=== PATIENT | female | born 1945 | race Hispanic/Latino ===

== ENCOUNTER 2018-10-23 09:06 | Day surgery (SDC) | payer OTHER ==
[2018-10-19 12:33] VITALS: BP 120/48
[2018-10-19 13:11] LABS: BASOPHILS % (AUTO) 0.2 % (0.0-5.0); LYMPHOCYTES % (AUTO) 28.3 % (21.0-51.0); MEAN CORPUSCULAR HGB CONC 33.8 g/dL (32.0-36.0); MEAN CORPUSCULAR VOLUME 94.8 fL (79-99); MONOCYTES % (AUTO) 6.3 % (3.0-13.0); NEUTROPHILS % (AUTO) 64.2 % (40.0-77.0); NUCLEATED RED BLOOD CELLS 0.1 % (0.0-0.19); PLATELET COUNT (AUTO) 172 K/uL (130-400); RED BLOOD CELL COUNT(AUTO) 4.01 MIL/uL (4.00-5.50); RED CELL DISTRIBUTION WIDTH 13.1 % (11.0-15.5); WHITE BLOOD COUNT (AUTO) 7.7 K/uL (4.8-10.8)
[2018-10-19 13:12] LABS: APPEARANCE,URINE Turbid (CLEAR); BILIRUBIN,URINE Negative (NEGATIVE); COLOR,URINE Yellow (YELLOW); GLUCOSE, URINE (UA) Negative (NEGATIVE); KETONES,URINE Negative (NEGATIVE); LEUKOCYTE ESTERASE ,URINE Moderate (NEGATIVE); NITRATE,URINE Positive (NEGATIVE); OCCULT BLOOD,URINE Negative (NEGATIVE); PROTEIN,URINE Negative (NEGATIVE); UROBILINOGEN,URINE 0.2 mg/dL (0.2-1.0)
[2018-10-19 13:24] LABS: INR 1.29 (0.85-1.15); PARTIAL THROMBOPLASTIN TIME 42.4 SEC (26.3-35.5); PROTHROMBIN TIME 13.5 SEC (9.6-11.6)
[2018-10-19 13:30] LABS: BACTERIA,URINE Moderate /HPF (None Seen); RBC,URINE 0-1 /HPF (0-1); SQUAMOUS EPITHELIAL CELL,UR Rare /HPF (0-2); WBC,URINE 26-50 /HPF (0-1)
[2018-10-19 13:32] LABS: CREATININE 0.8 mg/dL (0.5-1.5); POTASSIUM 3.8 mmol/L (3.5-5.1)
--- NOTE | 2018-10-22 10:50 | NUR ---
ABNORMAL LABS NOTIFIED UMAIR FAUSTIN OF PT 13.5, INR 1.29, PTT 42.4. UA- NITRATES POSITIVE, ULEUKEST MODERATE, UWBC 26-50. ORDERS TO DO URINE CULTURE. CALLED LAB, PER LAB, URINE SAMPLE FROM UA ONLY GOOD FOR 24 HOURS. WILL COLLECT URINE SAMPLE DAY OF PROCEDURE.
[~2018-10-23] VITALS: Ht 156.2 cm; Wt 80.7 kg
[2018-10-23] VITALS (11 sets, daily range): BP systolic 118–161; BP diastolic 34–60
[~2018-10-23 09:06] MED LIST: CA C-5 PO; CALC-866 PO; DIAZ5TAB4 PO; DONE10TA43 PO; ESCI20TA36 PO; FAMO20TA8 PO; HYDR-4068 PO; LOSA1TAB42 PO; MECL12.585 PO; MEMA10TA20 PO; METO25TA6 PO; NIFE30TA98 PO; OXYBUTYNIN; OXYBUTYNIN PO; PRED1TAB PO; RIVA20TA PO; SODIUM CHLORIDE 0.9% 500ML 500 ML IV SCH
[2018-10-23] MEDS ORDERED: MULT-1258 PO (09:48)
[2018-10-23] MEDS ORDERED: SODIUM CHLORIDE 0.9% 1000ML 1,000 ML IV ONE (09:55)
--- NOTE | 2018-10-23 10:23 | NUR ---
PROCEDURE PT HERE FOR PROCEDURE. DENIES ANY DISCOMFORT. DAUGHTER AT BEDSIDE
--- NOTE | 2018-10-23 12:28 | NUR ---
PROCEDURE PT TAKEN TO PROCEDURE VIA BED BY HUMAN PROJECTILE PERSONNEL ROOPA ARMAS
[2018-10-23] MEDS ORDERED: SODIUM BICARB 50MEQ 50ML VIAL ONE (12:31)
[2018-10-23] MEDS ORDERED: HEPARIN SODIUM 1000UNIT/ML 10ML VIAL ONE (12:31)
[2018-10-23] MEDS ORDERED: IOHEXOL 350 MG/ML 100ML INFUS..BTL IV ONE (12:32)
[2018-10-23] MEDS ORDERED: LIDOCAINE HCL 2% 20ML ONE (12:32)
[2018-10-23] MEDS ORDERED: NITROGLYCERIN 5 MG/ML 10 ML VIAL IV ONE (12:32)
[2018-10-23] MEDS ORDERED: MIDAZOLAM HCL 1 MG/ML 2ML VIAL ONE ×2 (13:03→13:32)
[2018-10-23] MEDS ORDERED: MEPERIDINE-PF 25 MG/ML SYG ONE ×2 (13:03→13:31)
[2018-10-23] MEDS ORDERED: CEFAZOLIN SODIUM 1 GM VIAL ONE (13:31)
[2018-10-23] MEDS ORDERED: LIDOCAINE HCL 1% MDV 50ML VIAL ONE (13:32)
[2018-10-23] MEDS ORDERED: BUPIVACAINE/PF 0.25% 30ML VIAL IJ ONE (13:32)
[2018-10-23] MEDS ORDERED: SODIUM CHLORIDE 0.9% 1000ML 1,000 ML IV SCH (14:05)
[2018-10-23] MEDS ORDERED: ACETAMINOPHEN-CODEINE 300/30MG TAB PO PRN ×2 (14:15)
[2018-10-23] MEDS ORDERED: ACETAMINOPHEN 325 MG TAB PO ONE (16:15)
== END 2018-10-23 18:25 | disposition home or self-care (01) ==
LOC: DAH 09:06
PROVIDERS: ATTEND Internal Medicine Cardiovascular Disease
DX: I25.10 Atherosclerotic heart disease of native coronary artery without angina pectoris (principal); Z68.34 Body mass index [BMI] 34.0-34.9, adult; Z79.899 Other long term (current) drug therapy; Z79.01 Long term (current) use of anticoagulants; I48.0 Paroxysmal atrial fibrillation; I49.5 Sick sinus syndrome; Z86.73 Personal history of transient ischemic attack (TIA), and cerebral infarction without residual deficits; M54.12 Radiculopathy, cervical region; Z98.890 Other specified postprocedural states; Z90.710 Acquired absence of both cervix and uterus
CPT/HCPCS: 36415; 71045; 80048; 81001; 85025; 85610; 85730; 87077; 87088; 87186; 93005; 93458; C1760; C1894; J0690; J1644; J2175; J2250; J3490 ×5; J7030; Q9965 ×2; Q9967; 99156; 99157

== ENCOUNTER 2018-11-20 10:00 | Observation (INO) | payer OTHER ==
[2018-11-16 13:40] VITALS: BP 110/43
[2018-11-16 14:23] LABS: BASOPHILS % (AUTO) 0.7 % (0.0-5.0); EOSINOPHILS % (AUTO) 0.9 % (0.0-8.0); HEMATOCRIT 37.9 % (36-48); LYMPHOCYTES % (AUTO) 24.7 % (21.0-51.0); MEAN CORPUSCULAR HEMOGLOBIN 31.9 pg (27.0-33.0); MEAN CORPUSCULAR HGB CONC 33.7 g/dL (32.0-36.0); MEAN CORPUSCULAR VOLUME 94.7 fL (79-99); MONOCYTES % (AUTO) 6.2 % (3.0-13.0); NEUTROPHILS % (AUTO) 67.5 % (40.0-77.0); PLATELET COUNT (AUTO) 186 K/uL (130-400); RED CELL DISTRIBUTION WIDTH 13.1 % (11.0-15.5); WHITE BLOOD COUNT (AUTO) 7.4 K/uL (4.8-10.8)
[2018-11-16 14:36] LABS: CREATININE 0.9 mg/dL (0.5-1.5); POTASSIUM 4.1 mmol/L (3.5-5.1)
[2018-11-16 14:37] LABS: INR 1.05 (0.85-1.15); PARTIAL THROMBOPLASTIN TIME 32.9 SEC (26.3-35.5)
--- NOTE | 2018-11-16 14:48 | NUR ---
PATIENT TAKES MEMANTINE AND DONEPEZIL, SHE IS ABLE TO RECALL THE PROCEDURE AND REASON FOR THIS PROCEDURE, SHE ALERT AND ORIENTED X3
[~2018-11-20] VITALS: Ht 154.9 cm; Wt 81.4 kg
[2018-11-20] VITALS (9 sets, daily range): BP systolic 104–133; BP diastolic 39–60
[~2018-11-20 10:00] MED LIST changes: +MULT-1258 PO; +OMEGA PLUS PO; -OXYBUTYNIN; +SODIUM CHLORIDE 0.9% 1000ML 1,000 ML IV SCH; -SODIUM CHLORIDE 0.9% 500ML 500 ML IV SCH
[2018-11-20] MEDS ORDERED: BUPIVACAINE/PF 0.25% 30ML VIAL IJ ONE (11:28)
[2018-11-20] MEDS ORDERED: LIDOCAINE HCL 1% MDV 50ML VIAL ONE (11:28)
[2018-11-20] MEDS ORDERED: CEFAZOLIN SODIUM 1 GM VIAL ONE (11:28)
[2018-11-20] MEDS ORDERED: MIDAZOLAM HCL 1 MG/ML 2ML VIAL ONE (11:50)
[2018-11-20] MEDS ORDERED: MEPERIDINE-PF 25 MG/ML SYG ONE (11:50)
[2018-11-20] MEDS ORDERED: ACETAMINOPHEN 325 MG TAB PO PRN (13:00)
[2018-11-20] MEDS ORDERED: MECLIZINE HCL 12.5 MG TABLET PO SCH (13:00)
[2018-11-20] MEDS ORDERED: DIAZEPAM 5 MG TABLET PO PRN (13:00)
--- NOTE | 2018-11-20 13:33 | NUR ---
ARRIVAL TO FLOOR ROOM 224. AAOX3 DENIES CP DENIES SOB DENIES NV. LEFT UPPER CHEST DRESSING IN PLACE CLEAN DRY AND INTACT, LEFT ARM SLING IN PLACE. NO COMPLAINTS. TELE PACK PLACED ON PATIENT, CALL LIGHT WITHIN REACH.
--- NOTE | 2018-11-20 13:40 | NUR ---
DR VILLASENOR AWARE OF PT ARRIVAL TO FLOOR
[2018-11-20] MEDS: HYDROCODONE/ACETAMINOPHEN 10/325 MG TAB PO PRN ×2 (14:02→21:32)
[2018-11-20] MEDS: METOPROLOL TARTRATE 25 MG TAB PO SCH (16:25)
--- NOTE | 2018-11-20 16:25 | NUR ---
METOPROLOL PO NOT GIVEN SBP <60. PT IS RESTING NO COMPLAINTS DENIES PAIN AT THIS TIME, DENIES DIZZINESS. RESTING IN BED.
[2018-11-20] MEDS ORDERED: OXYBUTYNIN CHLORIDE 5 MG TABLET PO SCH (21:00)
[2018-11-20] MEDS ORDERED: DONEPEZIL HCL 5 MG TAB PO SCH (21:00)
[2018-11-20] MEDS ORDERED: MEMANTINE HCL 5 MG TABLET PO SCH (21:00)
[2018-11-20] MEDS: FAMOTIDINE 20MG TAB 20 MG TAB PO SCH (21:00)
[2018-11-20] MEDS: NIFEDIPINE ER 30 MG TAB PO SCH (21:00)
[2018-11-21] VITALS: BP 130/50
[2018-11-21 04:00] VITALS: BP 133/51
--- NOTE | 2018-11-21 04:06 | NUR ---
Patient resting in bed. Alert and oriented. Forgetful. Patient was informed she would get her night meds between [id number]. Entered room at 2114. Patient took her home medications. Did not administer any of scheduled meds for 2099. Patient bilateral radial pulses palpable. No swelling to left arm. Procedure dressing in place to left chest. Site soft with some incisional pain. Medicated with ordered pain medication. Patient stated relief.
[2018-11-21 07:33] VITALS: BP 151/52
[2018-11-21] MEDS: METOPROLOL TARTRATE 25 MG TAB PO SCH ×2 (08:03→17:00)
[2018-11-21] MEDS: FAMOTIDINE 20MG TAB 20 MG TAB PO SCH (08:03)
[2018-11-21] MEDS: NIFEDIPINE ER 30 MG TAB PO SCH (08:03)
[2018-11-21] MEDS: ACETAMINOPHEN-CODEINE 300/30MG TAB PO PRN ×2 (08:25→15:22)
[2018-11-21] MEDS ORDERED: HYDROCHLOROTHIAZIDE 25 MG TABLET PO SCH (09:00)
[2018-11-21] MEDS ORDERED: **HM** VIT D3 5000 UNITS PO SCH (09:00)
[2018-11-21] MEDS ORDERED: PREDNISONE 1 MG TAB PO SCH (09:00)
[2018-11-21] MEDS ORDERED: CALCIUM 600 + VITAMIN D 400 TABLET PO SCH (09:00)
[2018-11-21] MEDS ORDERED: MULTIVITAMIN WITH MINERALS TABLET PO SCH (09:00)
[2018-11-21] MEDS ORDERED: LOSARTAN 50 MG TABLET PO SCH (09:00)
[2018-11-21 11:13] VITALS: BP 129/69
[2018-11-21 16:14] VITALS: BP 115/50
[2018-11-21] MEDS ORDERED: CITALOPRAM 20 MG TABLET PO SCH (21:00)
== END 2018-11-21 18:15 | disposition home or self-care (01) ==
LOC: DAH 10:00 → DAHIP 10:01 → DAH 10:01 → 2DH 14:22
PROVIDERS: ADMIT Internal Medicine; ATTEND Internal Medicine
DX: I48.0 Paroxysmal atrial fibrillation (principal); I10 Essential (primary) hypertension; R00.1 Bradycardia, unspecified; I35.1 Nonrheumatic aortic (valve) insufficiency; I25.10 Atherosclerotic heart disease of native coronary artery without angina pectoris; M54.12 Radiculopathy, cervical region; Z86.73 Personal history of transient ischemic attack (TIA), and cerebral infarction without residual deficits; Z90.710 Acquired absence of both cervix and uterus; Z95.0 Presence of cardiac pacemaker; Z82.49 Family history of ischemic heart disease and other diseases of the circulatory system
CPT/HCPCS: 33208; 36415; 71045; 80048; 85025; 85610; 85730; 93005; C1785; C1898 ×2; G0378 ×32; J0690; J2175; J2250; J3490 ×2; J7030; J7512; 99156; 99157